=== PATIENT | female | born 1945 | race Caucasian/White ===

== ENCOUNTER 2017-04-04 18:03 | Emergency (ER) | payer BC, OTHER ==
[2017-04-04 18:14] VITALS: BP 171/89; PULSE 89; TEMP 97.8; BMI 32.5
--- NOTE | 2017-04-04 19:00 | PDOC ---
History of Present Illness - General Chief Complaint: Injury Stated Complaint: INJURY Time Seen by Provider: 04/04/17 18:43 History Source: Patient Exam Limitations: No Limitations - History of Present Illness Initial Comments: 04/04/17 18:54 71 yr female tripped on her rug today and fell on her left arm. No LOC denies head injury or chest injury. Pt has pain to her left shoulder/humerus. Severity: reports: moderate Pain Location: reports: upper extremity Past History - Past Medical History Allergies/Adverse Reactions: Allergies Allergy/AdvReac Type Severity Reaction Status Date / Time Penicillins Allergy Verified 04/04/17 18:09 Home Medications: Ambulatory Orders Oxycodone HCl/Acetaminophen [Percocet 5-325 mg Tablet] 1 - 2 tab PO Q6H PRN #14 tab MDD 8 tabs 04/04/17 CVA: No COPD: No DVT: No - Immunization History Immunization Up to Date: Yes - Suicide/Smoking/Psychosocial Hx Smoking History: Never smoked Have you smoked in the past 12 months: No Information on smoking cessation initiated: No Hx Alcohol Use: No Drug/Substance Use Hx: No Substance Use Type: None Review of Systems - Review of Systems Able to Perform ROS?: Yes Is the patient limited [place] proficient: No Constitutional: No: Symptoms Reported HEENTM: No: Symptoms Reported Respiratory: No: Symptoms reported Cardiac (ROS): No: Symptoms Reported ABD/GI: No: Symptoms Reported : No: Symptoms Reported Musculoskeletal: Yes: See HPI *Physical Exam - Vital Signs Last Vital Signs Temp Pulse Resp BP Pulse Ox 97.8 F 89 16 171/89 98 04/04/17 18:10 04/04/17 18:10 04/04/17 18:10 04/04/17 18:10 04/04/17 18:10 - Physical Exam General Appearance: Yes: Nourished, Appropriately Dressed HEENT: positive: EOMI, DEYA, Normal ENT Inspection, TMs Normal, Pharynx Normal Neck: positive: Supple. negative: Tender Respiratory/Chest: positive: Lungs Clear, Normal Breath Sounds Cardiovascular: positive: Regular Rhythm, Regular Rate Gastrointestinal/Abdominal: positive: Normal Bowel Sounds, Soft Musculoskeletal: positive: Normal Inspection Extremity: positive: Normal Capillary Refill, Normal Inspection, Normal Range of Motion, Tender (left humerus , nv intact, no crepitus ), Other (nv intact , limited ROM at the shoulder joint ) Integumentary: positive: Normal Color, Dry, Warm Neurologic: positive: transit operations supervisor II-XII NML intact, Fully Oriented, Alert, Normal Mood/ Affect ED Treatment Course - RADIOLOGY Radiology Studies Ordered: Category Date Time Status HUMERUS-LEFT [RAD] Stat Radiology 04/04/17 18:49 Ordered SHOULDER-LEFT [RAD] Stat Radiology 04/04/17 18:49 Ordered - Medications Given in the ED: ED Medications Discontinued Medications Generic Name Dose Route Start Last Admin Trade Name Freq PRN Reason Stop Dose Admin Oxycodone/Acetaminophen 1 combo 04/04/17 18:49 04/04/17 18:52 Percocet 5/325 - PO 04/04/17 18:50 1 combo ONCE ONE Administration - Consult/PCP Time Called: 19:26 Case discussed with consulting physician: Hieu Ramey Medical Decision Making - Medical Decision Making 04/04/17 18:59 cc: trip and fall at home injured left humerus percocet for pain xray to r/o fracture 04/04/17 19:[address] Ramey verification lead orthopedist xray reviewed will place in sling and give pain meds, will follow up in the office . pt and her have been given the dc plan all questions asked and answered. pt and her agree with plan of care. *DC/Admit/Observation/Transfer Diagnosis at time of Disposition: Humerus fracture Qualifiers: Encounter type: initial encounter Humerus Location: surgical neck Fracture type : closed Fracture morphology: unspecified fracture morphology Fracture alignment : displaced Laterality: left Qualified Code(s): S42.212A - Unspecified displaced fracture of surgical neck of left humerus, initial encounter for closed fracture - Discharge Dispostion Disposition: HOME Condition at time of disposition: Good - Prescriptions Prescriptions: Oxycodone HCl/Acetaminophen [Percocet 5-325 mg Tablet] 1 - 2 tab PO Q6H PRN #14 tab MDD 8 tabs PRN Reason: Severe Pain - Referrals Referrals: Sherlyn Hernandez [Primary Care Provider] - Hieu Ramey MD [Staff Physician] - - Patient Instructions Additional Instructions: apply ice every 2hrs for 20 minutes for the next 2 days while awake keep the sling in place except to bathe take percocet for severe pain (take with food) follow with the orthopedist for follow up call tomorrow to make appointment - Post Discharge Activity
[2017-04-04] MEDS ORDERED: CYCLOBENZAPRINE HCL 10 MG TABLET (FP) ONE (19:50)
[2017-04-04] MEDS ORDERED: KETOROLAC TROMETHAMINE 60 MG/2 ML VIAL ONE (19:50)
== END 2017-04-04 19:52 | disposition home or self-care (01) ==
LOC: JERFT 18:03
DX: S42.212A Unspecified displaced fracture of surgical neck of left humerus, initial encounter for closed fracture (principal); W18.09XA Striking against other object with subsequent fall, initial encounter; Y93.89 Activity, other specified; Y92.018 Other place in single-family (private) house as the place of occurrence of the external cause; Y99.8 Other external cause status
CPT/HCPCS: 73030-TC-LT; 73060-TC-LT; 99281-25

== ENCOUNTER 2023-02-07 16:41 | Emergency (ER) | payer OTHER, BC ==
[2023-02-07 17:14] VITALS: BP 147/74; PULSE 89; RESP 16; TEMP 97.9; BMI 31.9
[2023-02-07] MEDS ORDERED: SODIUM CHLORIDE 0.9% 500 ML INFUS.BAG IV ONE (17:32)
[2023-02-07] MEDS ORDERED: METOCLOPRAMIDE HCL INJECTION 10 MG/2 ML VIAL IVPB ONE (17:32)
[2023-02-07] MEDS ORDERED: METOCLOPRAMIDE HCL INJECTION 10 MG/2 ML VIAL ONE (17:51)
[2023-02-07] MEDS ORDERED: MECLIZINE HCL 25 MG TABLET (FP) PO ONE (17:56)
[2023-02-07 18:07] LABS: BASO % 0.3 % (0-2.0); EOS % 0.1 % (0-4.5); HEMATOCRIT 42.7 % (32.4-45.2); HEMOGLOBIN 14.3 GM/dL (10.7-15.3); LYMPH % 14.9 % (8-40); MCH 30.3 pg (25.7-33.7); MCHC 33.6 g/dl (32.0-36.0); MEAN CELL VOLUME 90.3 fl (80-96); MEAN PLT VOLUME 8.1 fl (7.5-11.1); MONO % 4.7 % (3.8-10.2); PLATELET COUNT 250 10^3/uL (134-434); RBC 4.72 M/mm3 (3.60-5.2); RDW 12.5 % (11.6-15.6); WHITE BLOOD COUNT 11.1 K/mm3 (4.0-10.0)
[2023-02-07] MEDS ORDERED: MECLIZINE HCL 25 MG TABLET (FP) ONE (18:31)
[2023-02-07 18:32] LABS: POTASSIUM 3.7 mmol/L (3.5-5.1)
[2023-02-07 18:34] LABS: CALCIUM 9.4 mg/dL (8.5-10.1); MAGNESIUM 2.3 mg/dL (1.8-2.4)
[2023-02-07 18:35] LABS: BLOOD UREA NITROGEN 13.9 mg/dL (7-18)
[2023-02-07 18:37] LABS: CREATININE 0.6 mg/dL (0.55-1.3)
[2023-02-07 18:39] LABS: BILIRUBIN,TOTAL 0.5 mg/dL (0.2-1); TOT PROT 7.2 g/dl (6.4-8.2)
[2023-02-07] MEDS ORDERED: ONDANSETRON 4 MG/2 ML VIAL IVPUSH ONE (19:09)
[2023-02-07] MEDS ORDERED: ONDANSETRON 4 MG/2 ML VIAL ONE (19:45)
== END 2023-02-07 21:39 | disposition home or self-care (01) ==
LOC: JER 16:41
PROC: 3E033GC Introduction of Other Therapeutic Substance into Peripheral Vein, Percutaneous Approach (ICD-10-PCS; principal; 2023-02-07)
PROC: 3E033GC Introduction of Other Therapeutic Substance into Peripheral Vein, Percutaneous Approach (ICD-10-PCS; 2023-02-07)
DX: R42 Dizziness and giddiness (principal); R11.2 Nausea with vomiting, unspecified; R19.7 Diarrhea, unspecified; R53.83 Other fatigue; Z20.822 Contact with and (suspected) exposure to COVID-19
CPT/HCPCS: 0241U-QW; 36415; 70450-TC; 80053; 82962; 83735; 85025; 93005; 93010; 99285-25

== ENCOUNTER 2023-02-10 21:40 | Observation (INO) | payer OTHER, BC ==
[2023-02-10 21:44] VITALS: BMI 31.9
[2023-02-10] MEDS ORDERED: NITROGLYCERIN SUBLINGUAL 1/200 0.3 MG BTL SL ONE (22:41)
[2023-02-10] MEDS ORDERED: amLODIPine BESYLATE 5 MG TABLET (FP) PO ONE (22:42)
[2023-02-10] MEDS ORDERED: amLODIPine BESYLATE 5 MG TABLET (FP) ONE (23:26)
[2023-02-10] MEDS ORDERED: NITROGLYCERIN SUBLINGUAL 1/150 0.4 MG TAB ONE (23:26)
[2023-02-10 23:46] LABS: BASO % 0.6 % (0-2.0); EOS % 0.6 % (0-4.5); HEMATOCRIT 43.4 % (32.4-45.2); HEMOGLOBIN 14.6 GM/dL (10.7-15.3); LYMPH % 33.1 % (8-40); MCH 30.8 pg (25.7-33.7); MCHC 33.7 g/dl (32.0-36.0); MEAN CELL VOLUME 91.2 fl (80-96); MONO % 6.9 % (3.8-10.2); NEUT % 58.8 % (42.8-82.8); PLATELET COUNT 260 10^3/uL (134-434); RBC 4.75 M/mm3 (3.60-5.2); RDW 12.5 % (11.6-15.6)
[2023-02-10 23:54] LABS: INR 1.01 (0.83-1.09); PROTHROMBIN TIME (PATIENT) 11.7 SEC (9.7-13.0)
[2023-02-10 23:57] LABS: ACTIVATED PTT 34.8 SECONDS (25.2-36.5)
[2023-02-11 00:09] LABS: POTASSIUM 3.7 mmol/L (3.5-5.1)
[2023-02-11 00:10] LABS: CALCIUM 9.2 mg/dL (8.5-10.1)
[2023-02-11 00:11] LABS: BLOOD UREA NITROGEN 14.2 mg/dL (7-18); MAGNESIUM 2.3 mg/dL (1.8-2.4)
[2023-02-11 00:14] LABS: CREATININE 0.6 mg/dL (0.55-1.3)
[2023-02-11 00:16] LABS: BILIRUBIN,TOTAL 0.5 mg/dL (0.2-1); TOT PROT 7.2 g/dl (6.4-8.2)
[2023-02-11] MEDS ORDERED: DOCUSATE SODIUM 100 MG CAPSULE (FP) PO PRN (04:29)
[2023-02-11] MEDS ORDERED: ACETAMINOPHEN 1000 MG/100 ML BAG IVPB PRN (04:33)
[2023-02-11] MEDS ORDERED: MECLIZINE HCL 25 MG TABLET (FP) PO PRN (05:32)
[2023-02-11] MEDS ORDERED: ASPIRIN 81 MG CHEWABLE TABLETS PO SCH (13:45)
[2023-02-11] MEDS ORDERED: ASPIRIN 81 MG CHEWABLE TABLETS ONE (14:58)
[2023-02-11] MEDS ORDERED: amLODIPine BESYLATE 5 MG TABLET (FP) ONE (16:36)
[2023-02-11] MEDS ORDERED: ACETAMINOPHEN INJECTION 100 ML IVPB ONE ×2 (16:37→16:39)
[2023-02-11] MEDS: amLODIPine BESYLATE 5 MG TABLET (FP) PO SCH (16:50)
[2023-02-11] MEDS ORDERED: ENOXAPARIN NA (PORCINE) 40 MG/0.4 ML DISP.SYRIN SQ ONE (19:51)
[2023-02-11] MEDS: ENOXAPARIN NA (PORCINE) 40 MG/0.4 ML DISP.SYRIN SQ SCH (19:57)
[2023-02-12] MEDS ORDERED: ACETAMINOPHEN 325 MG TABLET (FP) PO PRN (04:29)
[2023-02-12] MEDS ORDERED: MECLIZINE HCL 25 MG TABLET (FP) ONE (05:31)
[2023-02-12 07:25] LABS: BASO % 0.7 % (0-2.0); EOS % 1.5 % (0-4.5); HEMATOCRIT 41.4 % (32.4-45.2); HEMOGLOBIN 14.2 GM/dL (10.7-15.3); LYMPH % 44.2 % (8-40); MCHC 34.2 g/dl (32.0-36.0); MEAN CELL VOLUME 90.7 fl (80-96); MEAN PLT VOLUME 8.5 fl (7.5-11.1); MONO % 8.6 % (3.8-10.2); PLATELET COUNT 241 10^3/uL (134-434); RBC 4.57 M/mm3 (3.60-5.2); RDW 12.6 % (11.6-15.6); WHITE BLOOD COUNT 5.9 K/mm3 (4.0-10.0)
[2023-02-12 07:53] LABS: CHLORIDE 106 mmol/L (98-107); POTASSIUM 3.7 mmol/L (3.5-5.1); SODIUM 138 mmol/L (136-145)
[2023-02-12 07:54] LABS: ANION GAP 5 mmol/L (4-13); BLOOD UREA NITROGEN 12.1 mg/dL (7-18); CALCIUM 8.9 mg/dL (8.5-10.1); CO2 26 mmol/L (21-32); GLUCOSE,RANDOM 105 mg/dL (74-106)
[2023-02-12 07:57] LABS: CREATININE 0.5 mg/dL (0.55-1.3)
[2023-02-12 09:04] VITALS: RESP 18; TEMP 98
[2023-02-12] MEDS ORDERED: VALSARTAN 80 MG TABLET PO SCH (10:00)
[2023-02-12] MEDS ORDERED: ASPIRIN COATED 81 MG TABLET.EC PO SCH (10:00)
[2023-02-12] MEDS ORDERED: VALSARTAN 80 MG TABLET ONE (11:03)
[2023-02-12] MEDS: amLODIPine BESYLATE 5 MG TABLET (FP) PO SCH (11:08)
[2023-02-12] MEDS: ENOXAPARIN NA (PORCINE) 40 MG/0.4 ML DISP.SYRIN SQ SCH (11:08)
[2023-02-12 12:24] LABS: CHOLESTEROL 178 mg/dL (50-200)
[2023-02-12 12:25] LABS: LDL CHOLESTEROL (ONLY SJRH) 83 mg/dL (5-100)
[2023-02-12 12:26] LABS: HDL CHOLESTEROL 73 mg/dL (40-60)
[2023-02-12 13:12] VITALS: PULSE 97
[2023-02-12 15:45] VITALS: BP 130/78
[2023-02-12] MEDS ORDERED: ATORVASTATIN CA 40 MG TABLET (FP) PO SCH (22:00)
== END 2023-02-12 16:13 | disposition home or self-care (01) ==
LOC: JER 21:40 → JERBED 02-11 03:41
PROVIDERS: ADMIT Internal Medicine; ATTEND Internal Medicine
PROC: 3E033NZ Introduction of Analgesics, Hypnotics, Sedatives into Peripheral Vein, Percutaneous Approach (ICD-10-PCS; principal; 2023-02-11)
PROC: 3E023GC Introduction of Other Therapeutic Substance into Muscle, Percutaneous Approach (ICD-10-PCS; 2023-02-11)
DX: I16.0 Hypertensive urgency (principal); M19.90 Unspecified osteoarthritis, unspecified site; R42 Dizziness and giddiness; R51.9 Headache, unspecified; Z29.89 Encounter for other specified prophylactic measures; Z87.891 Personal history of nicotine dependence; Z88.0 Allergy status to penicillin
CPT/HCPCS: 36415; 70551-TC; 71046-TC-FY; 80048; 80053; 80061; 83735; 84439; 84443; 84484; 85025; 85610; 85651; 85730; 86140; 93005; 93010; 93880-TC; 97116-GP; 97162-GP; 99285-25; G0378

== ENCOUNTER 2023-03-04 19:15 | Emergency (ER) | payer OTHER, BC ==
[2023-03-04 19:42] VITALS: BMI 31.8
[2023-03-04 21:50] LABS: BASO % 0.3 % (0-2.0); EOS % 0.8 % (0-4.5); HEMATOCRIT 45.7 % (32.4-45.2); HEMOGLOBIN 15.4 GM/dL (10.7-15.3); LYMPH % 21.2 % (8-40); MCH 30.4 pg (25.7-33.7); MCHC 33.8 g/dl (32.0-36.0); MEAN PLT VOLUME 8.3 fl (7.5-11.1); MONO % 4.9 % (3.8-10.2); NEUT % 72.8 % (42.8-82.8); PLATELET COUNT 245 10^3/uL (134-434); RBC 5.07 M/mm3 (3.60-5.2); RDW 12.6 % (11.6-15.6); WHITE BLOOD COUNT 8.8 K/mm3 (4.0-10.0)
[2023-03-04 21:57] LABS: INR 1.03 (0.83-1.09); PROTHROMBIN TIME (PATIENT) 11.9 SEC (9.7-13.0)
[2023-03-04 21:59] LABS: ACTIVATED PTT 37.9 SECONDS (25.2-36.5)
[2023-03-04 22:12] LABS: EPI CELLS 7 /uL (0-25.1); HYALINE CASTS 0 /uL (0-3.1); PH,URINE 5.5 (5.0-8.0); URINE APPEARANCE CLEAR; URINE BACTERIA 18 /uL (0-1359); URINE BILIRUBIN NEGATIVE (NEGATIVE); URINE COLOR YELLOW; URINE GLUCOSE (UA) NEGATIVE (NEGATIVE); URINE KETONE 1+ (NEGATIVE); URINE LEUK ESTERASE 2+ (NEGATIVE); URINE NITRITE NEGATIVE (NEGATIVE); URINE PROTEIN NEGATIVE (NEGATIVE); URINE RBC 4 /uL (0-23.9); URINE UROBILINOGEN 0.2 mg/dL (0.2-1.0); URINE WBC 37 /uL (0-25.8)
[2023-03-04 22:16] LABS: BLOOD UREA NITROGEN 11.4 mg/dL (7-18); MAGNESIUM 2.5 mg/dL (1.8-2.4)
[2023-03-04 22:20] LABS: BILIRUBIN,TOTAL 0.4 mg/dL (0.2-1); CREATININE 0.6 mg/dL (0.55-1.3)
[2023-03-04] MEDS ORDERED: ACETAMINOPHEN 1000 MG/100 ML BAG IVPB ONE (23:24)
[2023-03-04] MEDS ORDERED: ACETAMINOPHEN INJECTION 100 ML IVPB ONE (23:26)
[2023-03-05 01:42] VITALS: BP 160/75; PULSE 80; RESP 16
[2023-03-05 01:43] VITALS: TEMP 98.3
== END 2023-03-05 02:04 | disposition home or self-care (01) ==
LOC: JER 19:15
PROC: 3E033NZ Introduction of Analgesics, Hypnotics, Sedatives into Peripheral Vein, Percutaneous Approach (ICD-10-PCS; principal; 2023-03-04)
DX: I10 Essential (primary) hypertension (principal); R51.9 Headache, unspecified; Z20.822 Contact with and (suspected) exposure to COVID-19
CPT/HCPCS: 0241U-QW; 36415; 70450-TC; 71045-TC-FY; 80053; 81003; 82550; 83735; 84443; 84484; 85025; 85610; 85730; 93005; 93010; 99285-25